=== PATIENT | male | born 2005 | race Caucasian/White ===

== ENCOUNTER 2023-07-07 15:50 | Emergency (ER) | payer MEDICAID ==
[~2023-07-07] VITALS: Ht 180.3 cm; Wt 63.5 kg
[2023-07-07 15:59] VITALS: O2SAT 100
[2023-07-07 18:15] VITALS: BP 127/77
[2023-07-07] MEDS ORDERED: IBUPROFEN 400MG TABLET PO ONE (18:15)
[2023-07-07] MEDS ORDERED: HYDROCODONE/ACETAMINOPHEN 7.5/325MG TABLET PO ONE (18:15)
[2023-07-07] MEDS ORDERED: TETANUS, DIPHTHERIA, PERTUSSIS VAC/PF 0.5ML (>10YR OLD) IM ONE (18:15)
[2023-07-07] MEDS ORDERED: CLINDAMYCIN HCL 150MG CAPSULE PO ONE (18:30)
[2023-07-07] MEDS ORDERED: IBUP-2028 MT (19:35)
[2023-07-07] MEDS ORDERED: TOPUD PO (19:35)
[2023-07-07] MEDS ORDERED: CLIN-194 MT (19:35)
[2023-07-07] MEDS ORDERED: MORP15TA67 MT (19:36)
[2023-07-07 19:50] VITALS: PULSE 89; RESP 18; TEMP 98.2
== END 2023-07-07 20:17 | disposition home or self-care (01) ==
LOC: ER 15:50 → EDSEX 15:50 → ER 20:17
DX: S92.511B Displaced fracture of proximal phalanx of right lesser toe(s), initial encounter for open fracture (principal); X58.XXXA Exposure to other specified factors, initial encounter; Y93.89 Activity, other specified; Y92.89 Other specified places as the place of occurrence of the external cause; Y99.8 Other external cause status
CPT/HCPCS: 73630; 90715; 90471; 99284; Z7610 ×3